=== PATIENT | female | born 1965 | race Caucasian/White ===

== ENCOUNTER 2022-11-17 14:08 | Outpatient (AMB) | payer OTHER, SELFPAY ==
--- NOTE | 2022-11-17 15:16 | AM.OFFWIN_ITS ---
Intake Vital Signs 11/17/22 15:17 Height 5 ft 4 in Weight 149 lb BMI 25.6 BP 120/80 Blood Pressure Location Lt brachial Position Sitting Pulse 88 Pulse Source Pulse Oximeter Pulse Oximetry (%) 97 Oxygen Delivery Method Room Air Intake Visit Reasons: EP, WC Fall injury Intake Note: Patient here for as she had a fall at work this morning. Patient Tobacco Use Status: Never used Tobacco Allergies omeprazole [OMEPRAZOLE] Allergy (Intermediate, Unverified 11/17/22 15:56) RASH Medication List - Last Reconciled 11/17/22 by Kelby Manzo MD No Known Home Meds Do you need a note to return to daycare/school/sports/work: Yes HPI EP, WC Fall injury HPI Details Date of injury: 11/17/2022. 57-year-old female presents to the [facility] for a sick visit. Patient works at the local [employer] and she slipped in the employee break room. She landed on her kn ees and elbows and arched her back. She is now complaining of pain in the lower back. No urinary incontinence. [facility] Social History Patient Tobacco Use Status: Never used Tobacco Physical Exam Vital Signs: Last Vital Signs Pulse 88 11/17/22 15:17 BP 120/80 11/17/22 15:17 Pulse Ox 97 11/17/22 15:17 Oxygen Delivery Method Room Air 11/17/22 15:17 BMI result Body Mass Index 25.6 Back/Spine/Pelvis Other: Back: No spinal tenderness or paraspinal spasm. Extrem Other: Right and left knees, right and left elbows show minimal bruising. There is no break in skin. Assessment & Plan Assessment & Plan (1) Low back pain: Code(s): M54.50 - Low back pain, unspecified Plan: Symptoms are self-limited. Patient did not want any prescription medication. Note for work given. Coding Level of Care Code Est Pt Level 3 (07982) Diagnoses Low back pain M54.50
[2022-11-17 15:17] VITALS: BP 120/80; PULSE 88; O2SAT 97; BMI 25.6
== END 2022-11-17 15:59 | disposition home or self-care (01) ==
PROVIDERS: PCP Internal Medicine; Visit Provider Internal Medicine
DX: M54.50 Low back pain, unspecified (principal)
CPT/HCPCS: 99213